=== PATIENT | female | born 1935 | race Two or more races ===

== ENCOUNTER 2024-11-07 08:23 | Emergency (ER) | payer OTHER ==
[~2024-11-07] VITALS: Ht 152.4 cm; Wt 41.3 kg
[2024-11-07] MEDS ORDERED: ZESTRIL20 MG PO (08:29)
[2024-11-07] MEDS ORDERED: ATORVASTATIN CA20 MG PO (08:30)
[2024-11-07] MEDS ORDERED: ARICEPT10 MG PO (08:30)
[2024-11-07] MEDS ORDERED: MEMANTINE HCL5 MG PO (08:30)
[2024-11-07] MEDS ORDERED: TOPROL XL100 M1 PO (08:30)
[2024-11-07] MEDS ORDERED: MIRTAZAPINE15 M1 PO (08:30)
[2024-11-07] MEDS ORDERED: PEPCID AC20 MG PO (08:31)
[2024-11-07] MEDS ORDERED: METFORMIN HCL500 M3 PO (08:31)
[2024-11-07] MEDS ORDERED: APETIGEN-PLUS1 EACH PO (08:31)
[2024-11-07] MEDS ORDERED: BUSPIRONE HCL7.5 MG PO (08:32)
[2024-11-07] MEDS ORDERED: LevETIRAcetam 500 MG TAB. PO ONE (11:45)
[2024-11-07 12:59] LABS: BASO % 0.7 % (0.1-1.2); EOS # 0.14 (0.04-0.54); EOS % 1.1 % (0.7-7.0); HEMATOCRIT 35.7 % (34.1-44.9); LYMPH # 1.55 (1.18-3.74); MEAN CORPUSCULAR HEMOGLOBIN 28.8 pg (25.6-32.2); MONO # 1.04 (0.24-0.82); MONO % 8.1 % (4.7-12.5); NEUT # 10.02 (1.56-6.13); NEUT % 77.8 % (34.0-71.1); PLATELET COUNT 268 K/uL (163-369); RED BLOOD COUNT 4.16 M/uL (3.93-5.22); RED CELL DISTRIBUTION WIDTH 12.3 % (11.6-14.4)
[2024-11-07 13:34] LABS: ALBUMIN 3.9 gm/dL (3.4-5.0); BILIRUBIN TOTAL 0.36 mg/dL (0.3-1.2); CALCIUM 9.5 mg/dL (8.5-10.1); CREATININE SERUM 1.07 mg/dL (0.55-1.02); GFR 48.39; GLOBULINA 4.4 G/DL (2.4-3.5); POTASSIUM 4.53 mEq/L (3.5-5.1); TOTAL PROTEIN 8.3 gm/dL (6.4-8.2)
[2024-11-07 13:41] LABS: INR 0.98; PARTIAL THROMBOPLASTIN TIME 24.5 SECONDS (22.0-34.0); PROTHROMBIN TIME 10.7 SECONDS (9.0-11.5)
[2024-11-07] MEDS ORDERED: KEPPRA500 MG PO (14:26)
[2024-11-07] MEDS ORDERED: PROTONIX40 MG PO (14:26)
== END 2024-11-07 14:49 | disposition home or self-care (01) ==
LOC: ER 08:23 → EDBD 08:23 → ER 10:01
PROVIDERS: General Practice
DX: S06.5X0A Traumatic subdural hemorrhage without loss of consciousness, initial encounter (principal); S00.81XA Abrasion of other part of head, initial encounter; W06.XXXA Fall from bed, initial encounter; Y93.84 Activity, sleeping; Y92.092 Bedroom in other non-institutional residence as the place of occurrence of the external cause; G30.8 Other Alzheimer's disease; F02.80 Dementia in other diseases classified elsewhere, unspecified severity, without behavioral disturbance, psychotic disturbance, mood disturbance, and anxiety; I10 Essential (primary) hypertension; E11.9 Type 2 diabetes mellitus without complications; Z79.84 Long term (current) use of oral hypoglycemic drugs